=== PATIENT | male | born 1975 | race Caucasian/White ===

== ENCOUNTER 2016-08-19 13:38 | Emergency (ER) | payer MEDICARE, OTHER ==
[~2016-08-19] VITALS: Ht 185.4 cm; Wt 88.5 kg
[2016-08-19 14:01] VITALS: BP 125/75
== END 2016-08-19 14:21 | disposition home or self-care (01) ==
LOC: ER 13:42
DX: L03.113 Cellulitis of right upper limb (principal); F20.9 Schizophrenia, unspecified; F31.9 Bipolar disorder, unspecified
CPT/HCPCS: 99283; A4606; Z7610

== ENCOUNTER 2023-06-12 17:50 | Emergency (ER) | payer OTHER, MEDICAID | END 2023-06-12 20:18 | disposition left against medical advice (07) | LOC: ER 18:09 | DX: J45.909 Unspecified asthma, uncomplicated (principal); Z53.21 Procedure and treatment not carried out due to patient leaving prior to being seen by health care provider ==